=== PATIENT | female | born 1965 | race Caucasian/White ===

== ENCOUNTER 2017-04-11 13:35 | Emergency (ER) | payer MEDICAID ==
[~2017-04-11] VITALS: Ht 157.5 cm; Wt 49.9 kg
[~2017-04-11 13:35] MED LIST: ALBU0.084; BECL0.07; CITA10TA59; LORA-655; OME20GT; ZOLP-158
[2017-04-11 14:31] VITALS: BP 113/72
[2017-04-11] MEDS ORDERED: methylPREDNISolone SOD SUCC 125 MG/2 ML VL IM ONE (15:15)
[2017-04-11] MEDS ORDERED: cefTRIAXone SOD 1,000 MG VL IM ONE (15:15)
[2017-04-11] MEDS ORDERED: ALBUTEROL SULF 2.5 MG/0.5ML(0.5%) NEB SOLN NEB ONE (15:15)
[2017-04-11] MEDS ORDERED: IPRATROPIUM BROM 0.5 MG/2.5ML INH SOL NEB ONE (15:15)
== END 2017-04-11 16:17 | disposition home or self-care (01) ==
LOC: ER 13:39
DX: J44.9 Chronic obstructive pulmonary disease, unspecified (principal); J20.9 Acute bronchitis, unspecified; J02.9 Acute pharyngitis, unspecified; F17.210 Nicotine dependence, cigarettes, uncomplicated; K21.9 Gastro-esophageal reflux disease without esophagitis
CPT/HCPCS: 71020; 93005; 94640; 96372; 99284; J0696; J2930

== ENCOUNTER 2021-04-22 12:10 | Emergency (ER) | payer MEDICARE, MEDICAID ==
[~2021-04-22] VITALS: Ht 160 cm; Wt 64.4 kg
[~2021-04-22 12:10] MED LIST changes: -CITA10TA59; +CITA10TA8; -ZOLP-158; +ZOLP5TAB
[2021-04-22 14:13] LABS: Basophils # (auto) 0.1 10 ^3/uL (0-0.2); Basophils % (auto) 1.2 % (0.0-2.0); Eosinophils # (auto) 0.1 10 ^3/uL (0-0.8); Eosinophils % (auto) 1.1 % (0.0-7.0); Hematocrit 39.7 % (36.0-46.0); Hemoglobin 13.6 g/dL (12.2-16.2); Lymphocytes # (auto) 2.5 10 ^3/uL (0.4-5.4); Mean Corpuscular Hemoglobin 31.6 pg (28.0-32.0); Mean Corpuscular Hgb Conc. 34.1 g/dL (32.0-36.0); Mean Corpuscular Volume 92.8 fL (80.0-100.0); Monocytes # (auto) 0.3 10 ^3/uL (0-1.3); Monocytes % (auto) 4.7 % (0.0-12.0); Neutrophils # (auto) 4.2 10 ^3/uL (1.6-8.6); Nucleated Red Blood Cells % 0.1 %; Red Blood Cells 4.28 10^6/uL (4.0-5.20); Red Cell Distribution Width 13.6 % (11.8-14.3); White Blood Cell 7.3 10^3/uL (4.4-10.8)
[2021-04-22 14:34] LABS: Albumin 3.8 g/dL (3.4-5.0); Anion Gap 3 (5-15); Blood Urea Nitrogen 11 mg/dL (7-18); Calcium 9.1 mg/dL (8.5-10.1); Carbon Dioxide 29 mmol/L (21-32); Chloride 109 mmol/L (98-107); Glucose 92 mg/dL (74-106); Potassium 4.3 mmol/L (3.5-5.1); Sodium 141 mmol/L (136-145)
[2021-04-22 14:47] LABS: Urine Bacteria NONE SEEN /hpf (None Seen); Urine Blood 1+ /uL (Negative); Urine Specific Gravity 1.012 (1.001-1.035); Urine WBC 1 /hpf (0 - 5)
[2021-04-22 14:49] LABS: Alanine Aminotransferase 31 U/L (13-56); Alkaline Phosphatase 105 U/L (45-117); Aspartate Aminotransferase 21 U/L (15-37); BUN/Creatinine Ratio 14.5; Bilirubin, Total 0.6 mg/dL (0.2-1.0); GFR African American 101 mL/min; GFR Non-African American 84 mL/min; Total Protein 7.4 g/dL (6.4-8.2)
[2021-04-22 16:06] VITALS: BP 114/74
== END 2021-04-22 16:12 | disposition home or self-care (01) ==
LOC: ER 12:10
DX: M54.12 Radiculopathy, cervical region (principal); J44.9 Chronic obstructive pulmonary disease, unspecified; K21.9 Gastro-esophageal reflux disease without esophagitis; E78.5 Hyperlipidemia, unspecified; I25.10 Atherosclerotic heart disease of native coronary artery without angina pectoris; Z87.891 Personal history of nicotine dependence; Z79.899 Other long term (current) drug therapy; Z88.0 Allergy status to penicillin; Z88.2 Allergy status to sulfonamides; Z86.73 Personal history of transient ischemic attack (TIA), and cerebral infarction without residual deficits
CPT/HCPCS: 36415; 71045; 72125; 80053; 81001; 84484; 85025; 93005; 93971